=== PATIENT | female | born 1935 | race Caucasian/White ===

== ENCOUNTER 2017-12-11 13:30 | Outpatient (CLI) | payer MEDICARE, BC | END 2017-12-11 13:31 | disposition home or self-care (01) | LOC: BICMAMMO 13:30 | PROVIDERS: ATTEND Family Medicine | DX: M85.80 Other specified disorders of bone density and structure, unspecified site (principal); R09.89 Other specified symptoms and signs involving the circulatory and respiratory systems; Z78.0 Asymptomatic menopausal state | CPT/HCPCS: 77080; 93880 ==

== ENCOUNTER 2018-05-14 12:43 | Outpatient (CLI) | payer MEDICARE, BC | END 2018-05-14 12:44 | disposition home or self-care (01) | LOC: BICMAMMO 12:43 | PROVIDERS: ATTEND Obstetrics & Gynecology | DX: Z12.31 Encounter for screening mammogram for malignant neoplasm of breast (principal) | CPT/HCPCS: 77063; 77067 ==

== ENCOUNTER 2019-05-19 12:57 | Outpatient (CLI) | payer MEDICARE, BC ==
--- NOTE | 2019-05-19 13:55 | MMO ---
Bilateral MAMMO Bilat Screen DDI+SHAKA. CLINICAL HISTORY: Patient is 84 years old and is seen for screening. The patient has the following family history of breast cancer: mother, multi-myloma. The patient has no personal history of cancer. VIEWS: The views performed were: bilateral craniocaudal with tomosynthesis and bilateral mediolateral oblique with tomosynthesis. FILMS COMPARED: The present examination has been compared to prior imaging studies performed at [facility] on 05/04/2015, 05/04/2016, 05/07/2017 and 05/14/2018. This study has been interpreted with the assistance of computer-aided detection. MAMMOGRAM FINDINGS: There are scattered fibroglandular densities. There are vascular calcifications seen in both breasts. There are no suspicious masses, suspicious calcifications, or new areas of architectural distortion. IMPRESSION: A ROUTINE FOLLOW-UP MAMMOGRAM IN 1 YEAR IS RECOMMENDED. THE RESULTS OF THIS EXAM WERE SENT TO THE PATIENT. ACR BI-RADS Category 2 - Benign finding MAMMOGRAPHY NOTE: 1. A negative mammogram report should not delay a biopsy if a dominant of clinically suspicious mass is present. 2. Approximately 10% to 15% of breast cancers are not detected by mammography. 3. Adenosis and dense breasts may obscure an underlying neoplasm. Reported by: HEMAL JUNIOR MD Electonically Signed: [id number]
== END 2019-05-19 12:58 | disposition home or self-care (01) ==
LOC: BICMAMMO 12:57
PROVIDERS: ATTEND Obstetrics & Gynecology
DX: Z12.31 Encounter for screening mammogram for malignant neoplasm of breast (principal); Z80.3 Family history of malignant neoplasm of breast
CPT/HCPCS: 77063; 77067

== ENCOUNTER 2020-04-26 16:53 | Inpatient (IN) | payer MEDICARE, BC ==
[2020-04-26 17:39] LABS: #Basophils 0.1 thou/uL (0.0-0.2); #Eosinphils 0.1 thou/uL (0.0-0.7); #Lymphocytes 2.1 thou/uL (1.20-3.40); #Monocytes 0.6 thou/uL (0.11-0.59); #Neutrophils 6.5 thou/uL (1.40-6.50); %Basophils 0.7 % (0.0-1.0); %Eosinophils 0.8 % (0.0-10.0); %Lymphocytes 22.4 % (21.0-51.0); %Monocytes 5.9 % (0.0-10.0); %Neutrophils 70.3 % (42.0-75.0); Hemoglobin 12.1 g/dL (12.0-16.0); Mean Corpuscular HGB CONC 33.3 g/dL (32.0-36.0); Mean Corpuscular Hemoglobin 31.9 pg (27.0-31.0); Mean Corpuscular Volume 95.8 fL (78.0-98.0); Mean Platelet Volume 7.2 fL (7.4-10.4); Platelet Count 297 thou/uL (130-400); White Blood Cell (WBC) Count 9.3 thou/uL (4.8-10.8)
[2020-04-26 18:08] LABS: ALT (SGPT) 12 U/L (8-55); AST (SGOT) 20 U/L (5-34); Albumin 3.9 g/dL (3.4-4.8); Alkaline Phosphatase 96 U/L (40-110); Anion Gap 14 mmol/L (10-20); BUN (Urea Nitrogen) 22 mg/dL (9.8-20.1); Bilirubin, Total 0.3 mg/dL (0.2-1.2); CK (CPK) 61 U/L (29-168); Calc. Creatinine Clearance 0 mL/min (70-130); Calcium 9.5 mg/dL (7.8-10.44); Carbon Dioxide 27 mmol/L (23-31); Chloride 103 mmol/L (98-107); Estimated GFR-MDRD 65; Globulin 2.8 g/dL (2.4-3.5); Glucose 150 mg/dL (83-110); Lipase 29 U/L (8-78); Potassium 3.6 mmol/L (3.5-5.1); Protein, Total 6.7 g/dL (6.0-8.3); Sodium 140 mmol/L (136-145)
[2020-04-26] MEDS ORDERED: Lidocaine Viscous Sol 2% 15 ml UD Cup ONE (19:20)
[2020-04-26] MEDS ORDERED: Ondansetron PF 4 MG/2 ML Vial ONE (19:20)
[2020-04-26] MEDS ORDERED: Mag-Al 1200 mg/1200 mg/30 ML UDCUP ONE (19:20)
[2020-04-26] MEDS ORDERED: Pantoprazole 40 MG VIAL ONE (20:09)
[2020-04-26] MEDS ORDERED: Ondansetron PF 4 MG/2 ML Vial IVP PRN (23:05)
[2020-04-26] MEDS ORDERED: Metoprolol Tartrate 5 MG/5 ML VIAL IVP PRN ×2 (23:11→23:17)
[2020-04-26] MEDS ORDERED: hydrALAZINE 25 MG TAB PO PRN (23:17)
--- NOTE | 2020-04-26 23:50 | HP ---
REASON FOR ADMISSION: Vomiting. HISTORY OF PRESENT ILLNESS: This is an 85-year-old female patient who was sitting in bed and suddenly vomited large amount of burgundy colored material. She did not have any nausea. She did not have any abdominal pain. Did not have any lightheadedness. Currently, she is on the oncology floor and she appears to be doing well, in no acute distress. She is on aspirin. PAST MEDICAL HISTORY: 1. Hypothyroidism. 2. Anxiety. 3. High blood pressure. 4. Post cholecystectomy. ALLERGIES: TO AMOXICILLIN AND AZITHROMYCIN. FAMILY HISTORY: Positive for GERD. REVIEW OF SYSTEMS: All systems reviewed; except the above mentioned, found to be negative. PHYSICAL EXAMINATION: GENERAL: Awake, alert, oriented, does not appear in distress. VITAL SIGNS: Her blood pressure is 169/79, her heart rate is 78, saturating 100% on room air. HEENT: Head is nontraumatic, normocephalic. Pupils equal, reactive to light. Extraocular movements are intact. Nonicteric sclerae. Well-injected conjunctivae. Oral mucosa normal. Nasal mucosa normal. NECK: Supple. No adenopathy. No murmur. Thyroid is not palpable. Trachea is midline. No supraclavicular lymphadenopathy. HEART: S1, S2 regular. Systolic murmur is heard. LUNGS: Clear to auscultation bilaterally. No wheezes, rhonchi, no crackles. ABDOMEN: Bowel sounds are positive. Nontender abdomen. No hepatosplenomegaly. EXTREMITIES: No lower extremity edema. No cyanosis. NEUROLOGIC: Cranial nerves 2-12 within normal limits. Normal motor function. Normal sensory function. LABORATORY DATA: Blood work shows WBC of 9.3, hemoglobin of 12.1, platelets of 297. Sodium 140, potassium 3.6, bicarb of 27, creatinine 0.84. ASSESSMENT AND PLAN: This is an 85-year-old female patient, presenting after an episode of vomitus suspected to contain blood. She is on aspirin and she also takes ginkgo biloba. Patient will be admitted and aspirin will be held as well as gingko biloba. We will continue cycling her H and H. We will start her on IV Protonix, did receive initial dose in the ER. We will consult Gastroenterology. For DVT prophylaxis, we will give SCDs. For her high blood pressure, we will provide with blood pressure control by resuming her home medication and Lopressor IV as needed. For her hypothyroidism, continue with Synthroid. I did discuss with her the code status. She wishes to be full code. Job ID: [id number]
[2020-04-27 01:14] VITALS: BMI 30.5
[2020-04-27 04:03] LABS: #Eosinphils 0.2 thou/uL (0.0-0.7); #Lymphocytes 2.9 thou/uL (1.20-3.40); #Monocytes 0.7 thou/uL (0.11-0.59); #Neutrophils 3.9 thou/uL (1.40-6.50); %Basophils 0.6 % (0.0-1.0); %Eosinophils 2.3 % (0.0-10.0); %Lymphocytes 37.6 % (21.0-51.0); %Neutrophils 50.5 % (42.0-75.0); Hemoglobin 10.8 g/dL (12.0-16.0); Mean Corpuscular HGB CONC 34.6 g/dL (32.0-36.0); Mean Corpuscular Hemoglobin 33.5 pg (27.0-31.0); Mean Corpuscular Volume 96.9 fL (78.0-98.0); Mean Platelet Volume 7.2 fL (7.4-10.4); Platelet Count 262 thou/uL (130-400); RBC Distribution Width 11.2 % (11.5-14.5); Red Blood Cell (RBC) Count 3.23 mill/uL (4.20-5.40); White Blood Cell (WBC) Count 7.7 thou/uL (4.8-10.8)
[2020-04-27 04:05] LABS: Anion Gap 11 mmol/L (10-20); BUN (Urea Nitrogen) 18 mg/dL (9.8-20.1); Calc. Creatinine Clearance 69 mL/min (70-130); Carbon Dioxide 31 mmol/L (23-31); Chloride 104 mmol/L (98-107); Estimated GFR-MDRD 75; Glucose 120 mg/dL (83-110); Potassium 3.6 mmol/L (3.5-5.1); Sodium 142 mmol/L (136-145)
[2020-04-27] MEDS: Pantoprazole 40 MG VIAL IVP SCH ×2 (09:16→21:41)
--- NOTE | 2020-04-27 13:51 | PDOC.HOSPP ---
- Subjective Subjective: Patient was seen examined at bedside. No further vomiting blood. Hemoglobin trended down slightly. Pending GI eval - Objective Vital Signs & Weight: Vital Signs (12 hours) Temp Pulse Resp BP BP BP Pulse Ox 04/27/20 12:00 98.0 F 73 20 135/66 94 L 04/27/20 08:00 98.2 F 80 18 131/73 131/73 94 L 04/27/20 03:55 98.0 F 64 16 135/65 94 L 04/27/20 03:50 98.0 F 64 16 136/65 94 L Weight Weight 167 lb 3.2 oz I&O: 04/26/20 04/27/20 04/28/20 06:59 06:59 06:59 Intake Total 0 Balance 0 Result Diagrams: 04/27/20 03:17 04/27/20 03:17 Hospitalist ROS - Medication Medications: Active Medications Generic Name Dose Route Start Last Admin Trade Name Freq PRN Reason Stop Dose Admin Pantoprazole Sodium 40 mg 04/27/20 09:00 04/27/20 09:16 Pantoprazole 40 Mg Vial IVP 40 mg BID JOSH Administration - Exam Eye: PERRL ENT: normocephalic atraumatic Neck: supple, JVD Heart: RRR, no murmur Respiratory: CTAB Gastrointestinal: soft Extremities: no cyanosis Skin: normal turgor Neurological: cranial nerve grossly intact Musculoskeletal: normal tone Psychiatric: normal affect, normal behavior, A&O x 3 Hosp A/P - Plan Patient is pleasant 85 years old female, who presented with an episode of ?hematemesis. Patient was taking aspirin and ginkgo at home Presumed Hematemesis --Hb trended down slightly, no further episode noted. --Cont PPI BID. Follow H&H, low threshold for transfusion --Pending GI eval --hold ASA/Gingko Anemia of acute blood loss --mgt as above Essential hypertension --resume Cardizem, Lisinopril Hypothyroidism --Continue home meds, Levothyroxine DVT ppx: SCD GI ppx: PPI Code Status: Full Anticipated Dispo: Home when medically stable
[2020-04-27 14:03] LABS: SARS-CoV-2 MS2 Positive; SARS-CoV-2 N Gene Negative; SARS-CoV-2 S Gene Negative; SARS-CoV-2 by NAA Not Detected (NotDetected); SARS-CoV-2 orf1ab Negative
--- NOTE | 2020-04-27 20:20 | CON ---
DATE OF CONSULTATION: 04/27/2020 REQUESTING PHYSICIAN: Dakota Lyons MD REASON FOR CONSULTATION: Hematemesis. HISTORY OF PRESENT ILLNESS: Lakshmi Oneill is an 85-year-old woman, with no significant past gastrointestinal history. She recalls having undergone colonoscopies in the past, unsure when the last one was. She does not recall ever having undergone upper endoscopy. She does take Advil most days of the week for arthritis pains, but she has no chronic gastrointestinal symptoms. Yesterday morning, she started having some cramping epigastric pain. This was waxing and waning, but getting up to a 9/10 in intensity. She had an episode of nonbloody emesis that morning. The pain persisted through yesterday afternoon and prompted presentation to the emergency department. In the emergency department, she had an episode of coffee-grounds emesis described by nursing staff as well as the patient's daughter. This was not bright red blood, but was rather very dark in color/burgundy appearance. She has remained hemodynamically stable. Admission hemoglobin was 12.1, and it did drop to 10.8 today, but she has had no melena, actually no bowel movements today. After that episode of coffee-grounds emesis last night, her abdominal pain actually resolved and has not recurred today. She has been n.p.o. and is feeling a bit hungry and has no other complaints. REVIEW OF SYSTEMS: Full review of systems including constitutional, head, eyes, ears, nose, throat, GI, , cardiovascular, respiratory, musculoskeletal, neurologic systems is negative except as noted in the HPI. PAST MEDICAL HISTORY: Hypothyroidism, hypertension, anxiety, and cholecystectomy. ALLERGIES: AMOXICILLIN AND AZITHROMYCIN. OUTPATIENT MEDICATIONS: 1. Aricept. 2. Vitamin E. 3. Magnesium. 4. Lisinopril. 5. Multivitamin. 6. Meclizine. 7. Levothyroxine. 8. Advil p.r.n. 9. Acidophilus capsule. 10. Osteo Bi-Flex. 11. Ginkgo biloba. 12. Diltiazem 300 mg at bedtime. 13. Vitamin B12. 14. Vitamin D3. 15. Biotin. 16. Calcium/vitamin-D. 17. Aspirin 81 mg daily. 18. Amitriptyline 25 mg at bedtime. INPATIENT MEDICATIONS: Pantoprazole 40 mg IV q.12 hours. PHYSICAL EXAMINATION: VITAL SIGNS: Temperature 98.0, pulse 73, blood pressure 135/66, and 94% oxygen saturation on room air. GENERAL: An 85-year-old woman, sitting up in bed comfortably, in no distress. MENTAL: Alert and fully oriented. SKIN: She is a bit pale. No jaundice. No rashes were palpable. EYES: No scleral icterus. Extraocular movements intact. ENT: Mucous membranes moist. No oral lesions. LYMPH: No submandibular or supraclavicular lymphadenopathy. THYROID: Nontender to palpation. HEART: Regular rate and rhythm. LUNGS: Clear to auscultation bilaterally. ABDOMEN: Bowel sounds present. Soft and nontender to deep palpation throughout. EXTREMITIES: No peripheral edema. VESSELS: Radial pulses 2+ bilaterally. NEUROLOGIC: Cranial nerves 2 through 12 intact bilaterally. No focal deficits. LABORATORY STUDIES: Hemoglobin initially 12.1, came down to 10.8; WBC 7.7; and platelets 262. Sodium 142; potassium 3.6; BUN initially 22, now down to 18; creatinine 0.74; glucose 120. Troponin negative. Lipase only 29. CK only 61. LFTs all normal with total bilirubin 0.3, alkaline phosphatase 96, AST 20, ALT 12, albumin 3.9. COVID PCR is negative. ASSESSMENT AND PLAN: 1. Hematemesis, single episode of coffee-grounds emesis. 2. Epigastric pain, resolved after episode of hematemesis last night, was all acute yesterday. 3. Anemia, mild. The patient's presentation does sound consistent with acute upper gastrointestinal bleeding. It seems the bleeding has likely stopped though she did have a decline in hemoglobin of one point. She is currently asymptomatic and hemodynamically stable, suspicion would be highest for peptic ulcer disease given her frequent Advil use. Continue with the pantoprazole 40 mg IV twice daily for now. We will go ahead and give her liquid diet tonight, then have her n.p.o. after midnight for diagnostic EGD tomorrow. If the patient remains stable, EGD findings are reassuring tomorrow, she could potentially be discharged from the hospital thereafter. Thank you for the consultation. Please call anytime with questions or concerns. Job ID: [id number]
[2020-04-27] MEDS: Diltiazem HCl CD 300 mg Capsule PO SCH (21:38)
[2020-04-27] MEDS: Donepezil HCl 5 MG TAB PO SCH (21:38)
[2020-04-27] MEDS: Amitriptyline HCl 25 MG TAB PO SCH (21:38)
[2020-04-28] MEDS: Levothyroxine Sodium 25 MCG TAB PO SCH (06:15)
[2020-04-28 07:04] LABS: #Eosinphils 0.2 thou/uL (0.0-0.7); #Lymphocytes 1.7 thou/uL (1.20-3.40); #Monocytes 0.5 thou/uL (0.11-0.59); #Neutrophils 2.9 thou/uL (1.40-6.50); %Basophils 0.6 % (0.0-1.0); %Eosinophils 3.9 % (0.0-10.0); %Lymphocytes 31.7 % (21.0-51.0); %Monocytes 8.5 % (0.0-10.0); %Neutrophils 55.4 % (42.0-75.0); Hemoglobin 11.2 g/dL (12.0-16.0); Mean Corpuscular HGB CONC 32.8 g/dL (32.0-36.0); Mean Corpuscular Hemoglobin 32.4 pg (27.0-31.0); Mean Corpuscular Volume 98.6 fL (78.0-98.0); Mean Platelet Volume 7.1 fL (7.4-10.4); Platelet Count 241 thou/uL (130-400); RBC Distribution Width 11.2 % (11.5-14.5); Red Blood Cell (RBC) Count 3.45 mill/uL (4.20-5.40); White Blood Cell (WBC) Count 5.3 thou/uL (4.8-10.8)
[2020-04-28 07:07] LABS: INR-International Normal Ratio 1.1
[2020-04-28] MEDS: Pantoprazole 40 MG VIAL IVP SCH (08:46)
[2020-04-28] MEDS: Lisinopril 10 MG TAB PO SCH (08:46)
[2020-04-28] MEDS: Magnesium Oxide 250 MG TAB PO SCH (08:47)
[2020-04-28] MEDS ORDERED: PROPOFOL 200 MG/20 ML VIAL ONE (10:09)
[2020-04-28] MEDS ORDERED: Lidocaine 1% PF 5 ML VIAL ONE (10:09)
--- NOTE | 2020-04-28 14:26 | OP ---
DATE OF PROCEDURE: 04/28/2020 PROCEDURE PERFORMED: Esophagogastroduodenoscopy with biopsy. PREOPERATIVE DIAGNOSIS: Hematemesis. DESCRIPTION OF PROCEDURE: Informed consent was obtained from the patient. She was sedated with total intravenous anesthesia. The bite block was placed and the endoscope was advanced easily to the second portion of the duodenum and retroflexion was performed in the stomach. The esophagus has slight narrowing at the GE junction, but was otherwise normal. There was a 5 cm hiatal hernia present. There are multiple polyps in the fundus and body of the stomach measuring 5 to 12 mm. Biopsies were obtained from the polyps. There was erythematous streaky gastritis in the antrum, which could represent gastric antral vascular ectasias and these were primarily erythematous without obvious telangiectasias. Biopsies were obtained to rule out Helicobacter pylori. There was no stigmata of recent bleeding. The pylorus and first and second portions of the duodenum were normal. IMPRESSION: 1. Erythematous gastritis in the antrum, biopsied to rule out Helicobacter pylori. There was no active bleeding now, but this could represent gastric antral vascular ectasias. 2. 5 cm hiatal hernia. 3. Multiple polyps in the gastric fundus and body, biopsied. 4. There was no stigmata of recent bleeding and her hemoglobin was stable today. RECOMMENDATIONS: 1. Proton pump inhibitor daily. 2. Await histopathology. 3. Avoid NSAIDs. 4. Follow trend of her hemoglobin. 5. Advance diet. Job ID: [id number]
--- NOTE | 2020-04-28 15:06 | PDOC.HOSPP ---
- Subjective Subjective: s/p EGD, tolerated procedure well. Patient complained of cough. Updated her daughters on the phone - Objective Vital Signs & Weight: Vital Signs (12 hours) Temp Pulse Resp BP BP Pulse Ox 04/28/20 14:10 98.1 F 63 18 164/72 H 95 04/28/20 08:46 136/70 04/28/20 08:00 98.4 F 72 16 136/70 96 Weight Weight 167 lb 3.2 oz I&O: 04/27/20 04/28/20 04/29/20 06:59 06:59 06:59 Intake Total 0 250 Balance 0 250 Result Diagrams: 04/28/20 06:39 04/27/20 03:17 Radiology Reviewed by me: Yes EKG Reviewed by me: Yes Hospitalist ROS - Medication Medications: Active Medications Generic Name Dose Route Start Last Admin Trade Name Freq PRN Reason Stop Dose Admin Amitriptyline HCl 25 mg 04/27/20 21:00 04/27/20 21:38 Amitriptyline Hcl 25 Mg Tab PO 25 mg HS JOSH Administration Diltiazem HCl 300 mg 04/27/20 21:00 04/27/20 21:38 Diltiazem Hcl Cd 300 Mg Capsule PO 300 mg HS JOSH Administration Donepezil HCl 5 mg 04/27/20 21:00 04/27/20 21:38 Donepezil Hcl 5 Mg Tab PO 5 mg HS JOSH Administration Levothyroxine Sodium 25 mcg 04/28/20 06:00 04/28/20 06:15 Levothyroxine Sodium 25 Mcg Tab PO 25 mcg 0600 JOSH Administration Lisinopril 10 mg 04/28/20 09:00 04/28/20 08:46 Lisinopril 10 Mg Tab PO 10 mg DAILY JOSH Administration Magnesium Oxide 250 mg 04/28/20 09:00 04/28/20 08:47 Magnesium Oxide 250 Mg Tab PO Not Given DAILY JOSH - Exam General Appearance: NAD Eye: PERRL Neck: supple Heart: RRR Respiratory: CTAB Gastrointestinal: soft Extremities: no cyanosis Skin: normal turgor Neurological: cranial nerve grossly intact Musculoskeletal: normal tone Hosp A/P - Plan Patient is pleasant 85 years old female, who presented with an episode of ?hematemesis. Patient was taking aspirin and ginkgo at home [id number] emesis --Status post EGD, erythematous gastritis, hiatal hernia, multiple polyps biopsied --hold ASA/Gingko --Continue PPI, recheck CBC in a.m. Anemia of acute blood loss --mgt as above Cough --Check two-view chest x-ray Essential hypertension --resume Cardizem, Lisinopril Hypothyroidism --Continue home meds, Levothyroxine DVT ppx: SCD GI ppx: PPI Code Status: Full Anticipated Dispo: Home when medically stable
[2020-04-28] MEDS: Diltiazem HCl CD 300 mg Capsule PO SCH (20:21)
[2020-04-28] MEDS: Donepezil HCl 5 MG TAB PO SCH (20:21)
[2020-04-28] MEDS: Amitriptyline HCl 25 MG TAB PO SCH (20:22)
[2020-04-29] MEDS: Levothyroxine Sodium 25 MCG TAB PO SCH (05:54)
[2020-04-29 07:36] LABS: #Eosinphils 0.2 thou/uL (0.0-0.7); #Lymphocytes 1.6 thou/uL (1.20-3.40); #Monocytes 0.6 thou/uL (0.11-0.59); %Basophils 0.7 % (0.0-1.0); %Eosinophils 2.5 % (0.0-10.0); %Lymphocytes 21.7 % (21.0-51.0); %Monocytes 8.6 % (0.0-10.0); %Neutrophils 66.5 % (42.0-75.0); Hemoglobin 11.7 g/dL (12.0-16.0); Mean Corpuscular HGB CONC 33.1 g/dL (32.0-36.0); Mean Corpuscular Hemoglobin 32.5 pg (27.0-31.0); Mean Corpuscular Volume 98.1 fL (78.0-98.0); Mean Platelet Volume 6.9 fL (7.4-10.4); Platelet Count 268 thou/uL (130-400); RBC Distribution Width 11.2 % (11.5-14.5); Red Blood Cell (RBC) Count 3.61 mill/uL (4.20-5.40); White Blood Cell (WBC) Count 7.5 thou/uL (4.8-10.8)
[2020-04-29] MEDS: Lisinopril 10 MG TAB PO SCH (08:34)
[2020-04-29] MEDS: Magnesium Oxide 250 MG TAB PO SCH (08:34)
[2020-04-29 08:35] VITALS: BP 169/72
[2020-04-29 08:37] VITALS: TEMP 98.1
--- NOTE | 2020-04-29 08:49 | RAD ---
PA AND LATERAL VIEWS CHEST: Date: 04/29/2020 COMPARISON: 04/15/2020. FINDINGS: The heart size is normal. The lungs are well expanded without focal areas of consolidation, pneumotho races, or pleural effusions. Scoliosis of the spine is again seen. IMPRESSION: No radiographic evidence of acute cardiopulmonary process. POS: OFF
--- NOTE | 2020-04-29 09:00 | PDOC.DS.DS ---
Provider - Provider Date of Admission: 04/27/20 17:30 Date of Discharge: 04/29/20 Admitting Provider: Dakota Lyons MD Consultations: Gastroentrology Primary Care Physician: Lucina Leary Course - Hospital Course Hospital Course: DISCHARGE DIAGNOSES: 1. Coffee-ground hematemesis 2. Anemia of acute blood loss 3. Cough-resolved 4. Essential hypertension 5. Hypothyroidism PERTINENT IMAGING STUDIES: Chest x-ray: No acute cardiopulmonary process HISTORY OF PRESENT ILLNESS AND BRIEF HOSPITAL COURSE: My progress note the patient is a pleasant 85 years old female who has significant past medical history of hypothyroidism, hypertension, anxiety disorder, who presented to the ED with complaint of one episode of coffee-ground emesis. Patient reported that she takes at [facility] periodically for joint pain. She also on aspirin, ginkgo. At any rate her hemoglobin is on admission was 12.1. She was admitted for observation, and hemoglobin dropped down to 10.8. There was no further episodes of hematemesis observed while in the hospital. GI was consulted, patient subsequently underwent EGD, so gastritis, otherwise no evidence of active bleeding. Her hemoglobin went up on the day of discharge to 11.8. She is asymptomatic. Patient was placed on PPI. She was counseled with regard to avoid NSAID. She verbalized understanding and agreeable with the plan. We recommend to resume her aspirin on Sunday, continue PPI. Recheck her blood count next week if he is remained stable, she may resume her ginkgo if she desire. But otherwise, absolutely no further NSAID use. PROCEDURE PERFORMED: EGD: Erythematous gastritis in the antrum, biopsied rule out Helicobacter pylori. There was no active bleeding, but this could represent gastric antral vascular ectasias. 5 cm hiatal hernia. Multiple polyps in the gastric fundus and body, status post biopsy. There is no stigmata of the recent bleeding DISCHARGE CONDITION: STABLE DISPOSITION: HOME PHYSICAL EXAM: General Appearance: Alert, oriented, resting comfortably, no apparent distress, well developed/nourished. HEENT: Normocephalic/atraumatic, moist mucous membrane, normal ENT inspection, normal tones. PERRLA, no scleral icterus, normal conjunctiva Neck: Supple, normal inspection, no JVD Respiratory: Lungs are clear bilaterally, normal breath sounds, no accessory muscle use Cardiovascular: Regular rate, regular rhythm, no murmur, no rubs Abdomen: Soft, nontender, nondistended, normal bowel sounds, no organomegaly, no guarding no rebound Back: Normal inspection, no CVA tenderness Extremities: No clubbing, no cyanosis, no edema Psych/Mental Status: Normal affect, speech, non-pressured, AAO x 3 Neurologic: CN II-XII are intact. Skin: Warm/Dry, Normal Color, no rashes DISCHARGE TIME SPENT: >30 MINUTES Resuscitation Status: 04/26/20 23:05 Resuscitation Status Routine Resuscitation Status: FULL: Full Resuscitation - Labs Lab Results: 04/29/20 07:17 04/27/20 03:17 Abnormal Lab Results - Last 48 hrs 04/28/20 06:39: RBC 3.45 L, Hgb 11.2 L, Hct 34.0 L, MCV 98.6 H, MCH 32.4 H, RDW 11.2 L, MPV 7.1 L 04/29/20 07:17: RBC 3.61 L, Hgb 11.7 L, Hct 35.4 L, MCV 98.1 H, MCH 32.5 H, RDW 11.2 L, MPV 6.9 L, Monocytes # 0.6 H - Physical Exam Vitals: Vital Signs (12 hours) Temp Pulse Resp BP BP Pulse Ox 04/29/20 08:34 169/72 H 04/29/20 08:00 98.1 F 66 16 169/72 H 95 Weight Weight 167 lb 3.2 oz Physical Exam: The patient was seen and examined on the day of discharge. Plan - Discharge Medications Prescriptions: Pantoprazole [Protonix] 40 mg PO BID #60 tab Home Medications: Medication Instructions Recorded Confirmed Type Amitriptyline HCl [Elavil] 25 mg PO HS 11/11/15 04/27/20 History Ascorbate Calcium [Vitamin C] 500 mg PO DAILY 11/11/15 04/27/20 History Aspirin [Ecotrin Low Strength] 81 mg PO HS 11/11/15 04/27/20 History B-Complex with Vitamin C [Super B 1 tablet PO DAILY 11/11/15 04/27/20 History Complex-Vitamin C] Biotin 5,000 mcg PO DAILY 11/11/15 04/27/20 History Calcium Citrate/Vitamin D3 1 tablet PO DAILY 11/11/15 04/27/20 History [Citracal + D Maximum Caplet] Cholecalciferol (Vitamin D3) 5,000 unit PO DAILY 11/11/15 04/27/20 History [Vitamin D3] Cyanocobalamin (Vitamin B-12) 5,000 mcg SL DAILY 11/11/15 04/27/20 History [Vitamin B12] Diltiazem HCl [Diltiazem 24Hr CD] 300 mg PO HS 11/11/15 04/27/20 History Flaxseed Oil 2,000 mg PO DAILY 11/11/15 04/27/20 History Ginkgo Biloba 120 mg PO DAILY 11/11/15 04/27/20 History Glucosamine/D3/Boswellia Tsacia 3 tablet PO DAILY 11/11/15 04/27/20 History [Osteo Bi-Flex One Per Day] L. Acidophilus/Bifido Longum 12 mg PO DAILY 11/11/15 04/27/20 History [Acidophilus Capsule] Levothyroxine Sodium [Synthroid] 25 mcg PO DAILY 11/11/15 04/27/20 History Multivit-Min/FA/Lycopen/Lutein 1 capsule PO DAILY 11/11/15 04/27/20 History [Centrum Silver Tablet] Red Yeast Rice 600 mg PO DAILY 11/11/15 04/27/20 History [place] Oil/Foster-3 Fatty Acids 3 cap PO DAILY 11/11/15 04/27/20 History [[place] Oil 1,000 mg Softgel] Ubidecarenone [Co Q-10] 100 mg PO DAILY 11/11/15 04/27/20 History Meclizine HCl [Antivert] 25 mg PO Q8H PRN #0 tab 11/12/15 04/27/20 Rx Donepezil HCl [Aricept] 5 mg PO HS 04/27/20 04/27/20 History Lisinopril 10 mg PO DAILY 04/27/20 04/27/20 History Magnesium 250 mg PO DAILY 04/27/20 04/27/20 History Vitamin E 400 unit PO DAILY 04/27/20 04/27/20 History Pantoprazole [Protonix] 40 mg PO BID #60 tab 04/29/20 Rx Allergies: amoxicillin trihydrate [From Augmentin] Allergy (Verified 11/11/15 12:06) erythromycin base Allergy (Verified 11/11/15 12:06) pentazocine lactate [From Talwin] Allergy (Verified 11/11/15 12:06) potassium clavulanate [From Augmentin] Allergy (Verified 11/11/15 12:06) febridyne Allergy (Uncoded 11/11/15 12:06) - Discharge Instructions Discharge Instructions:: Stop Advil/Aleve. You may take Tylenol as needed for pain Stop Omeprazole. We replaced it with Protonix; take twice daily for 8weeks; then once daily thereafter You may resume baby aspirin on 05/03, and Gingko if you desire on 05/10 if no sign of bleeding Follow up with your Primary Care Provider in 1-2 weeks to recheck CBC to make sure your blood count remains stable. Notify your provider if you experience any: -temperature greater than 100.4F -nausea/vomiting -shortness of breath or chest pain that is unrelieved with rest -blood in urine/stool -questions or concerns that you may have Activity:: Activity as Tolerated Nourishment:: Heart Healthy Diet - Follow up Plan Referrals: Clarke Barrow MD [Active] - 7 Days (Call after discharge to schedule follow- up appointment) Lucina Leary [Primary Care Provider] - 7 Days (call after discharge to schedule follow-up appointment ) Disposition: HOME Quality - Care Measures CORE MEASURES:: N/A
--- NOTE | 2020-05-03 23:57 | PQF ---
CLINICAL DOCUMENTATION CLARIFICATION FORM: Dear : Alberto Nino MD Date / Time: 05/03/2020 Please exercise your independent, professional judgment in responding to the clarification form. Clinical indicators are provided on the bottom of this form for your review Please check appropriate box(es): [ X ] Hematemesis due to gastritis [ ] Hematemesis due to hiatal hernia [ ] Hematemesis due to polyps [ ] Other diagnosis (Please specify if any) [ ] Unable to determine Physician Signature: Date/Time: For continuity of documentation, please document condition throughout progress notes and discharge summary. Thank You. To be completed by CDI/Coding staff for physician review: Present Clinical Indicators - Signs / Symptoms / Labs Results and Location in Medical Record [x] Presumed Hematemesis Hospitalist PN on 04/27 [x] Anemia of acute blood loss Hospitalist PN on 04/27 [x] There was erythematous streaky gastritis in the antrum OP note on 04/28 [x] 5Cm hiatal hernia OP note on 04/28 [x] Multiple polyps in the gastric fundus and body, biopsied OP note on 04/28 Present Risk Factors Results and Location in Medical Record [x] Aged person 85 yrs ED provider report on 04/27 [x] Coffee ground emesis ED provider report on 04/27 [ ] [ ] Present Treatments Results and Location in Medical Record [x] Esophagogastroduodenoscopy with biopsy OP note on 04/28 [x] GI consultation Consult on 04/27 [x] Protonix 40 mg IV Medication on 04/27, 04/28 [ ] CDS/Top Hat Body Maker Signature: AAS Phone #: Date/Time: 05/03/2020 This is a permanent part of the Medical Record [facility]
== END 2020-04-29 10:11 | disposition home or self-care (01) | DRG 378 ==
LOC: ERS 16:53 → ONC 20:47 → OBSVTOIN 04-27 17:30
PROVIDERS: ADMIT Internal Medicine; ATTEND Family Medicine
PROC: 0DB68ZX Excision of Stomach, Via Natural or Artificial Opening Endoscopic, Diagnostic (ICD-10-PCS; principal; 2020-04-28)
PROC: 0DB78ZX Excision of Stomach, Pylorus, Via Natural or Artificial Opening Endoscopic, Diagnostic (ICD-10-PCS; 2020-04-28)
DX: K29.71 Gastritis, unspecified, with bleeding (principal); D62 Acute posthemorrhagic anemia; E03.9 Hypothyroidism, unspecified; K21.9 Gastro-esophageal reflux disease without esophagitis; I10 Essential (primary) hypertension; F41.9 Anxiety disorder, unspecified; Z90.49 Acquired absence of other specified parts of digestive tract; Z90.710 Acquired absence of both cervix and uterus; Z88.1 Allergy status to other antibiotic agents; Z88.8 Allergy status to other drugs, medicaments and biological substances; Z90.722 Acquired absence of ovaries, bilateral; Z79.899 Other long term (current) drug therapy; Z79.82 Long term (current) use of aspirin; R05 Cough; K44.9 Diaphragmatic hernia without obstruction or gangrene
CPT/HCPCS: 36415; 71046; 80048; 80053; 82550; 83690; 84484; 85025; 85610; 87635; 88305; 88312; 93005; 96374; 96375; 96376; C9113; G0378; J2405; J2704; U0003

== ENCOUNTER 2020-05-21 13:37 | Outpatient (CLI) | payer MEDICARE, BC ==
--- NOTE | 2020-05-21 14:15 | MMO ---
Bilateral MAMMO Bilat Screen DDI+SHAKA. CLINICAL HISTORY: Patient is 85 years old and is seen for screening. The patient has the following family history of breast cancer: mother, multi-myloma. The patient has no personal history of cancer. VIEWS: The views performed were: right mediolateral oblique. FILMS COMPARED: The present examination has been compared to prior imaging studies performed at [facility] on 05/04/2016, 05/07/2017, 05/14/2018 and 05/19/2019. This study has been interpreted with the assistance of computer-aided detection. MAMMOGRAM FINDINGS: There are scattered fibroglandular densities. There are vascular calcifications seen in both breasts. There are no suspicious masses, suspicious calcifications, or new areas of architectural distortion. IMPRESSION: A ROUTINE FOLLOW-UP MAMMOGRAM IN 1 YEAR IS RECOMMENDED. THE RESULTS OF THIS EXAM WERE SENT TO THE PATIENT. ACR BI-RADS Category 2 - Benign finding MAMMOGRAPHY NOTE: 1. A negative mammogram report should not delay a biopsy if a dominant of clinically suspicious mass is present. 2. Approximately 10% to 15% of breast cancers are not detected by mammography. 3. Adenosis and dense breasts may obscure an underlying neoplasm. Reported by: HEMAL JUNIOR MD Electonically Signed: [id number]
== END 2020-05-21 13:38 | disposition home or self-care (01) ==
LOC: BICMAMMO 13:37
PROVIDERS: ATTEND Obstetrics & Gynecology
DX: Z12.31 Encounter for screening mammogram for malignant neoplasm of breast (principal); R92.1 Mammographic calcification found on diagnostic imaging of breast; Z80.3 Family history of malignant neoplasm of breast
CPT/HCPCS: 77063; 77067

== ENCOUNTER 2021-10-16 20:59 | Emergency (ER) | payer MEDICARE, BC ==
[~2021-10-16 20:59] MED LIST: Iopamidol-370 76% 500 ML 1 ML ONE
[2021-10-16 21:49] LABS: #Basophils 0.1 thou/uL (0.0-0.2); #Eosinphils 0.1 thou/uL (0.0-0.7); #Lymphocytes 2.1 thou/uL (1.20-3.40); #Monocytes 0.7 thou/uL (0.11-0.59); #Neutrophils 4.8 thou/uL (1.40-6.50); %Basophils 0.7 % (0.0-1.0); %Eosinophils 1.6 % (0.0-10.0); %Lymphocytes 27.5 % (21.0-51.0); %Monocytes 8.5 % (0.0-10.0); %Neutrophils 61.7 % (42.0-75.0); Hemoglobin 12.9 g/dL (12.0-16.0); Mean Corpuscular HGB CONC 33.5 g/dL (32.0-36.0); Mean Corpuscular Hemoglobin 33.8 pg (27.0-31.0); Mean Platelet Volume 6.4 fL (7.4-10.4); Platelet Count 254 thou/uL (130-400); RBC Distribution Width 11.7 % (11.5-14.5); Red Blood Cell (RBC) Count 3.81 mill/uL (4.20-5.40); White Blood Cell (WBC) Count 7.8 thou/uL (4.8-10.8)
[2021-10-16 22:05] LABS: ALT (SGPT) 12 U/L (8-55); AST (SGOT) 15 U/L (5-34); Albumin 3.8 g/dL (3.4-4.8); Alkaline Phosphatase 71 U/L (40-110); Anion Gap 10 mmol/L (10-20); BUN (Urea Nitrogen) 21 mg/dL (9.8-20.1); Bilirubin, Total 0.4 mg/dL (0.2-1.2); Calc. Creatinine Clearance 0 mL/min (70-130); Calcium 9.6 mg/dL (7.8-10.44); Carbon Dioxide 28 mmol/L (23-31); Chloride 104 mmol/L (98-107); Globulin 2.5 g/dL (2.4-3.5); Glucose 140 mg/dL (83-110); Lipase 27 U/L (8-78); Potassium 3.4 mmol/L (3.5-5.1); Protein, Total 6.3 g/dL (5.8-8.1); Sodium 139 mmol/L (136-145)
[2021-10-16 22:47] LABS: Bacteria/HPF 2+ HPF (None Seen); Bilirubin Negative (Negative); Blood, Urine Negative (Negative); Clarity Clear (Clear); Glucose, Urine (Dipstick) Normal (Negative); Ketone, Urine Negative (Negative); Leukocyte 500 Leu/uL (Negative); Nitrite Negative (Negative); Protein, Urine (Dipstick) Negative (Neg-Trace); RBC/HPF 0-3 HPF (0-3); Renal Epithelial 0-3 HPF (None Seen); Specific Gravity, Urine 1.008 (1.002-1.036); Squamous Epithelial 0-3 HPF (0-3); Urobilinogen Normal mg/dL (Less than 2); WBC/HPF 21-50 HPF (0-3); pH, Urine 6.5 (5.0-9.0)
== END 2021-10-17 00:56 | disposition home or self-care (01) ==
LOC: ERS 20:59
DX: K44.9 Diaphragmatic hernia without obstruction or gangrene (principal); N30.00 Acute cystitis without hematuria; E03.9 Hypothyroidism, unspecified; K21.9 Gastro-esophageal reflux disease without esophagitis; I10 Essential (primary) hypertension
CPT/HCPCS: 36415; 74177; 80053; 81003; 81015; 83690; 84484; 85025; 93005; Q9967

== ENCOUNTER 2022-11-30 11:59 | Emergency (ER) | payer OTHER, MEDICARE, BC ==
[2022-11-30 12:46] LABS: #Eosinphils 0.1 thou/uL (0.0-0.7); #Monocytes 0.4 thou/uL (0.11-0.59); #Neutrophils 5.4 thou/uL (1.40-6.50); %Basophils 0.3 % (0.0-1.0); %Eosinophils 0.7 % (0.0-10.0); %Lymphocytes 17.8 % (21.0-51.0); %Monocytes 5.7 % (0.0-10.0); %Neutrophils 74.9 % (42.0-75.0); Hemoglobin 12.7 g/dL (12.0-16.0); Mean Corpuscular HGB CONC 34.1 g/dL (32.0-36.0); Mean Corpuscular Hemoglobin 32.3 pg (27.0-31.0); Mean Corpuscular Volume 94.7 fl (78.0-98.0); Mean Platelet Volume 9.1 fL (7.4-10.4); Platelet Count 232 10x3/uL (130-400); RBC Distribution Width 12.6 % (11.5-14.5); Red Blood Cell (RBC) Count 3.93 mill/uL (4.20-5.40); White Blood Cell (WBC) Count 7.2 10x3/uL (4.8-10.8)
[2022-11-30 13:00] LABS: PTT 25.9 sec (22.9-36.1); Prothrombin Time 13.4 sec (12.0-14.7)
[2022-11-30 13:03] LABS: ALT (SGPT) 7 U/L (8-55); AST (SGOT) 11 U/L (5-34); Albumin 3.9 g/dL (3.4-4.8); Alkaline Phosphatase 73 U/L (40-110); Anion Gap 10 mmol/L (10-20); BUN (Urea Nitrogen) 12 mg/dL (9.8-20.1); Bilirubin, Total 0.6 mg/dL (0.2-1.2); Calc. Creatinine Clearance 0 mL/min (70-130); Calcium 9.8 mg/dL (7.8-10.44); Carbon Dioxide 28 mmol/L (23-31); Chloride 101 mmol/L (98-107); Estimated GFR 59; Globulin 2.6 g/dL (2.4-3.5); Glucose 134 mg/dL (83-110); Potassium 3.2 mmol/L (3.5-5.1); Protein, Total 6.5 g/dL (5.8-8.1); Sodium 136 mmol/L (136-145)
[2022-11-30] MEDS ORDERED: Potassium Chloride 20 MEQ TAB ONE (13:41)
[2022-11-30] MEDS ORDERED: Boostrix 0.5 ML (Tdap) VIAL (>/=7 yrs of age) ONE (13:41)
[2022-11-30] MEDS ORDERED: traMADol HCl 50 MG TAB ONE (13:41)
[2022-11-30] MEDS ORDERED: Morphine 4 MG/ML VIAL ONE (14:38)
[2022-11-30] MEDS ORDERED: Ondansetron PF 4 MG/2 ML Vial ONE (14:38)
== END 2022-11-30 16:28 | disposition home or self-care (01) ==
LOC: ERS 11:59
DX: S42.301A Unspecified fracture of shaft of humerus, right arm, initial encounter for closed fracture (principal); S00.31XA Abrasion of nose, initial encounter; E87.6 Hypokalemia; E03.9 Hypothyroidism, unspecified; I10 Essential (primary) hypertension; K21.9 Gastro-esophageal reflux disease without esophagitis; W01.0XXA Fall on same level from slipping, tripping and stumbling without subsequent striking against object, initial encounter; Z23 Encounter for immunization; Z79.82 Long term (current) use of aspirin; Z79.899 Other long term (current) drug therapy
CPT/HCPCS: 36415; 70450; 70486; 71045; 72125; 80053; 85025; 85610; 85730; 90471; 90715; 96374; 96375; J2270; J2405